=== PATIENT | male | born 1940 | race American Indian/Alaskan Native ===

== ENCOUNTER → 2017-07-15 | Outpatient (CLI) | payer OTHER ==
[~2017-07-15] MED LIST: ATORVASTATIN CA20 MG PO; DABI150C PO; Hytrin2 MG PO; ZESTORETIC 20-121 EA PO
== END ==
LOC: PLD 07:42 → LAB SHORT 07:42
DX: D48.5 Neoplasm of uncertain behavior of skin (principal)
CPT/HCPCS: 88305

== ENCOUNTER → 2017-10-24 | Outpatient (CLI) | payer OTHER | END | disposition home or self-care (01) | LOC: PLD 09:46 → LAB SHORT 09:46 | DX: D48.5 Neoplasm of uncertain behavior of skin (principal) | CPT/HCPCS: 88305 ==

== ENCOUNTER → 2017-12-25 | Outpatient (CLI) | payer OTHER | END | disposition home or self-care (01) | LOC: LAB SHORT 11:02 → PLD 11:02 | DX: D48.5 Neoplasm of uncertain behavior of skin (principal) | CPT/HCPCS: 88305 ==

== ENCOUNTER → 2018-08-19 | Outpatient (CLI) | payer OTHER | END | disposition home or self-care (01) | LOC: PLD 11:18 → LAB SHORT 11:18 | DX: D48.5 Neoplasm of uncertain behavior of skin (principal) | CPT/HCPCS: 88305 ==

== ENCOUNTER → 2018-09-09 | Outpatient (CLI) | payer OTHER | LOC: PLD 08:17 → LAB SHORT 08:17 | DX: C44.310 Basal cell carcinoma of skin of unspecified parts of face (principal) | CPT/HCPCS: 88305 ==

== ENCOUNTER → 2018-09-16 | Outpatient (CLI) | payer OTHER | END | disposition home or self-care (01) | LOC: PLD 08:20 → LAB SHORT 08:20 | DX: C44.622 Squamous cell carcinoma of skin of right upper limb, including shoulder (principal) | CPT/HCPCS: 88305 ==

== ENCOUNTER → 2019-07-21 | Outpatient (CLI) | payer OTHER | END | disposition home or self-care (01) | LOC: PLD 09:11 → LAB SHORT 09:11 | DX: C44.41 Basal cell carcinoma of skin of scalp and neck (principal) | CPT/HCPCS: 88305 ==

== ENCOUNTER → 2020-03-16 | Outpatient (CLI) | payer OTHER | END | disposition home or self-care (01) | LOC: LAB 11:58 → LAB SHORT 11:58 | DX: D48.5 Neoplasm of uncertain behavior of skin (principal) | CPT/HCPCS: 88305 ==

== ENCOUNTER → 2020-03-28 | Outpatient (CLI) | payer OTHER | LOC: PLD 08:24 → LAB SHORT 08:24 | DX: C44.622 Squamous cell carcinoma of skin of right upper limb, including shoulder (principal) | CPT/HCPCS: 88305 ==

== ENCOUNTER → 2020-04-11 | Outpatient (CLI) | payer OTHER | LOC: LAB SHORT 07:48 → LAB 07:48 | DX: L57.0 Actinic keratosis (principal) | CPT/HCPCS: 88305 ==

== ENCOUNTER → 2020-04-25 | Outpatient (CLI) | payer OTHER | LOC: LAB SHORT 10:57 → LAB 10:57 | DX: L08.0 Pyoderma (principal) | CPT/HCPCS: 87070; 87077; 87186; 87205 ==

== ENCOUNTER → 2020-05-02 | Outpatient (CLI) | payer OTHER | END | disposition home or self-care (01) | LOC: LAB SHORT 16:42 → LAB 16:42 | DX: L08.0 Pyoderma (principal) | CPT/HCPCS: 87070; 87077; 87186; 87205 ==

== ENCOUNTER 2020-09-16 11:31 | Emergency (ER) | payer OTHER ==
[~2020-09-16] VITALS: Ht 175.3 cm; Wt 79.4 kg
[2020-09-16 13:56] LABS: Source, Urine Catheter
[2020-09-16 14:12] LABS: Appearance, Urine Hazy (Clear); Bilirubin, Urine Neg (Neg); Blood, Urine 5+ (Neg); Color, Urine Brown (P-Yellow); Glucose Qualitative, Urine Neg (Neg); Ketones, Urine Neg (Neg); Leukocyte Esterase, Urine 2+ (Neg); Nitrite, Urine Pos (Neg); Protein, Urine 3+ (Neg); Urobilinogen, Urine NORM (Normal)
[2020-09-16 14:25] LABS: BASOPHILS ABSOLUTE AUTO 0.07 K/mm3 (0.00-0.23); BASOPHILS PERCENT AUTO 1 % (0-2); EOSINOPHILS ABSOLUTE AUTO 0.24 K/mm3 (0.00-0.68); EOSINOPHILS PERCENT AUTO 3 % (0-6); Hematocrit 31.2 % (37.0-53.0); Hemoglobin 10.1 g/dL (13.5-17.5); IMMATURE GRAN ABSOLUTE AUTO 0.03 K/mm3 (0.00-0.10); IMMATURE GRAN PERCENT AUTO 0 % (0-1); LYMPHOCYTES PERCENT AUTO 13 % (21-46); MONOCYTES ABSOLUTE AUTO 1.52 K/mm3 (0.16-1.47); MONOCYTES PERCENT AUTO 16 % (4-13); Mean Corpuscular HGB 31.6 pg (26.0-34.0); Mean Corpuscular HGB Conc 32.4 g/dL (31.5-36.5); Mean Corpuscular Volume 98 fL (80-100); Mean Platelet Volume 11.2 fL (9.1-12.4); NEUTROPHILS PERCENT AUTO 68 % (41-73); Platelet Count 159 K/mm3 (150-400); RDW Coefficient Variation 13.2 % (11.7-14.2); RDW Standard Deviation 47.4 fL (35.1-46.3); White Blood Cell Count 9.46 K/mm3 (4.00-11.30)
[2020-09-16 14:50] LABS: Albumin, Blood 3.4 g/dL (3.4-5.0); Albumin/Globulin Ratio 1.1 (0.8-1.8); Bilirubin, Total 0.5 mg/dL (0.1-1.0); Bun/Creatinine Ratio 19.5 (12.0-20.0); Creatinine, Blood 1.49 mg/dL (0.60-1.20); Globulin, Blood 3.1 g/dL (2.2-4.0); Potassium, Blood 4.1 mmol/L (3.5-5.5); Total Protein, Blood 6.5 g/dL (6.4-8.2)
[2020-09-16 15:01] LABS: Red Blood Cells, Urine 50-100 /hpf (0-2); Squamous Epithelial Cells Few /hpf (Few); White Blood Cells, Urine 25-50 /hpf (0-5)
[2020-09-16 15:02] LABS: Bacteria Mod /hpf; Granular Casts 0-2 /lpf (0)
== END 2020-09-16 15:34 | disposition home or self-care (01) ==
LOC: ER 11:31
PROVIDERS: Physician Assistant
DX: T83.091A Other mechanical complication of indwelling urethral catheter, initial encounter (principal); N39.0 Urinary tract infection, site not specified; D64.9 Anemia, unspecified; Z79.899 Other long term (current) drug therapy
CPT/HCPCS: 36415; 51702; 51798; 80053; 81001; 85025; 87086; 96374-59; 99283-25; J1885

== ENCOUNTER 2020-09-18 16:01 | Emergency (ER) | payer OTHER ==
[~2020-09-18] VITALS: Ht 175.3 cm; Wt 79.4 kg
== END 2020-09-18 17:35 | disposition home or self-care (01) ==
LOC: ER 16:01
DX: T83.091A Other mechanical complication of indwelling urethral catheter, initial encounter (principal); I48.91 Unspecified atrial fibrillation; Z79.899 Other long term (current) drug therapy; Z87.891 Personal history of nicotine dependence
CPT/HCPCS: 51702; 99282-25

== ENCOUNTER → 2020-09-19 | Outpatient (CLI) | payer OTHER | END | disposition home or self-care (01) | LOC: LAB SHORT 17:45 | DX: N39.0 Urinary tract infection, site not specified (principal); R31.9 Hematuria, unspecified; R33.9 Retention of urine, unspecified | CPT/HCPCS: 87086 ==

== ENCOUNTER 2020-09-20 04:44 | Emergency (ER) | payer OTHER | END 2020-09-20 06:31 | disposition home or self-care (01) | LOC: ER 04:44 | DX: R33.9 Retention of urine, unspecified (principal); I48.91 Unspecified atrial fibrillation; I10 Essential (primary) hypertension; Z79.899 Other long term (current) drug therapy | CPT/HCPCS: 51702; 51798; 99283-25 ==

== ENCOUNTER 2020-11-25 00:28 | Day surgery (SDC) | payer OTHER ==
[2020-11-24 09:42] LABS: Hematocrit 24.4 % (37.0-53.0); Hemoglobin 7.8 g/dL (13.5-17.5)
[2020-11-24 13:40] LABS: IMMATURE RETIC FRACTION 23.5 % (2.3-16.0); RETIC HGB EQUIVALENT 35.1 pg (28.20-36.60); RETICULOCYTE ABSOLUTE 0.1353 M/mm3 (0.0200-0.1100); RETICULOCYTE COUNT PERCENT 5.41 % (0.50-2.50)
[2020-11-25] MEDS ORDERED: Magnesium250 MG PO (08:24)
[2020-11-25] MEDS ORDERED: VIT1CAPS12 (08:26)
[2020-11-25] MEDS ORDERED: B 50 (08:26)
[2020-11-25] MEDS ORDERED: FURO20 PO (08:27)
[2020-11-25] MEDS ORDERED: PANT40 PO (08:27)
[2020-11-25] MEDS ORDERED: FERSU300 PO (08:27)
--- NOTE | 2020-11-25 11:38 | NUR ---
BP AND HEART RATE REMAINED LOW THROUGH OUT TRANSFUSION. PT ASYMPTOMATIC. CALLED RESULTS TO DR. LOREDO OFFICE. THEY STATED THEY WILL SPEAK TO DR. SIDDIQI AND CALL PATIENT WITH DIRECTIONS. PT DID NOT TAKE BP MEDS THIS AM. HE IS TO HOLD THEM UNTIL HE HEARS FROM DR. SIDDIQI. PT AGREES TO THIS.
== END 2020-11-25 11:34 | disposition home or self-care (01) ==
LOC: ATC 00:28
PROVIDERS: Family Medicine
DX: D62 Acute posthemorrhagic anemia (principal); K92.1 Melena; I11.0 Hypertensive heart disease with heart failure; I50.9 Heart failure, unspecified; I48.91 Unspecified atrial fibrillation; Z95.2 Presence of prosthetic heart valve; N40.0 Benign prostatic hyperplasia without lower urinary tract symptoms; Z86.010 Personal history of colon polyps; Z85.46 Personal history of malignant neoplasm of prostate; Z79.01 Long term (current) use of anticoagulants
CPT/HCPCS: 36415; 36430; 85014; 85018; 85045; 86850; 86900; 86901; 86923; J7050; P9016

== ENCOUNTER → 2020-12-02 | Outpatient (CLI) | payer OTHER ==
[~2020-12-02] MED LIST changes: +B 50; +FERSU300 PO; +FURO20 PO; +Magnesium250 MG PO; +PANT40 PO; +VIT1CAPS12
[2020-12-05 13:53] LABS: Stool Occult Bld Immuno 1 Positive (NEGATIVE)
== END | disposition home or self-care (01) ==
LOC: LAB SHORT 10:07
PROVIDERS: Family Medicine
DX: Z12.11 Encounter for screening for malignant neoplasm of colon (principal)
CPT/HCPCS: G0328

== ENCOUNTER → 2021-08-03 | Outpatient (CLI) | payer OTHER ==
[2021-08-04 09:48] LABS: Stool Occult Bld Immuno 1 Positive (NEGATIVE)
== END | disposition home or self-care (01) ==
LOC: LAB SHORT 06:30 → LAB 06:30 → LAB FUT 08-03 13:15
PROVIDERS: Family Medicine
DX: Z12.11 Encounter for screening for malignant neoplasm of colon (principal)
CPT/HCPCS: G0328

== ENCOUNTER → 2021-09-13 | Outpatient (CLI) | payer OTHER | END | disposition home or self-care (01) | LOC: LAB SHORT 12:19 → PLD 12:19 | DX: L57.0 Actinic keratosis (principal) | CPT/HCPCS: 88305 ==